=== PATIENT | male | born 2005 | race Caucasian/White ===

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

== ENCOUNTER → 2024-01-22 13:53 | Outpatient (CLI) | payer OTHER, SELFPAY | PROVIDERS: Family Provider Internal Medicine; PCP Internal Medicine; Referring Provider Nurse Practitioner Family; Visit Provider Nurse Practitioner Family | DX: R50.9 Fever, unspecified (principal); J02.9 Acute pharyngitis, unspecified | CPT/HCPCS: 87070; 87077; 87147 ==